=== PATIENT | female | born 1990 | race African-American/Black ===

== ENCOUNTER 2017-08-25 10:47 | Emergency (ER) | payer OTHER ==
[2017-08-25 10:59] VITALS: BP 103/58; PULSE 53; TEMP 98.7; BMI 26.9
--- NOTE | 2017-08-25 11:03 | PDOC ---
History of Present Illness - General Chief Complaint: Redness To Affected Area Stated Complaint: RT FOREARM REDNESS Time Seen by Provider: 08/25/17 11:03 - History of Present Illness Initial Comments: 08/25/17 14:55 Chief complaint: Swelling and pain right forearm History of present illness: Patient complains of swelling and pain in the right forearm since yesterday at the site of insect bites. Had some numbness and tingling in her fingers during the night, but this has resolved. No other trauma Review of systems: No fever/chills, headache, URI symptoms, sore throat, cough, chest pain, shortness of breath, abdominal pain, nausea, vomiting, diarrhea. Menses regular. On control pills. Past medical history: Denies diabetes. Mild asthma controlled on medication, no recent flareups. Social/family history reviewed and noncontributory Physical exam: Alert oriented well-developed well-nourished no acute distress cheerful and cooperative Afebrile, vital signs normal Right upper extremity: Midforearm, dorsal ulnar aspect, insect bite with surrounding erythema and induration approximately 8 cm in diameter. No fluctuance. No deep pain or tenderness that would indicate fasciitis Impression: Insect bite, may be all ALLERGIC reaction, but also may be early cellulitis Plan: Rest and immobilization, antihistamine and antibiotic, CBC and blood cultures which are pending. Follow-up primary physician 24 hours or return to ER if pain or swelling worsens. Fully ambulatory and in no distress upon discharge to follow-up as directed Past History - Past Medical History Allergies/Adverse Reactions: Allergies Allergy/AdvReac Type Severity Reaction Status Date / Time amoxicillin [Amoxicillin] Allergy Mild Rash Verified 11/19/15 22:17 Home Medications: Ambulatory Orders Levonorgestrel-Ethin Estradiol [Chateal-28 Tablet] 1 each PO DAILY 02/15/16 Omeprazole 40 mg PO DAILY capsule 09/01/16 Cetirizine HCl [Zyrtec -] 10 mg PO DAILY 08/25/17 Clindamycin HCl 150 mg PO QID #20 capsule 08/25/17 Montelukast Sodium [Singulair] 10 mg PO DAILY 08/25/17 Anemia: No Asthma: Yes COPD: No GI Disorders: Yes (GERD) Psychiatric Problems: Yes (ANXIETY) - Surgical History Abdominal Surgery: No - Reproductive History Therapeutic (s) & number: Yes (one, 10/21/11) - Immunization History Td Vaccination: Yes Immunization Up to Date: Yes - Suicide/Smoking/Psychosocial Hx Smoking Status: No Smoking History: Never smoked Have you smoked in the past 12 months: Yes Number of Cigarettes Smoked Daily: 1 Information on smoking cessation initiated: Yes 'Breaking Loose' booklet given: 08/25/17 Hx Alcohol Use: No Drug/Substance Use Hx: No Substance Use Type: None Hx Substance Use Treatment: No *Physical Exam - Vital Signs Last Vital Signs Temp Pulse Resp BP Pulse Ox 98.7 F 53 L 20 103/58 97 08/25/17 10:47 08/25/17 10:47 08/25/17 10:47 08/25/17 10:47 08/25/17 10:47 ED Treatment Course - LABORATORY CBC & Chemistry Diagram: 08/25/17 11:03 08/25/17 12:10 *DC/Admit/Observation/Transfer Diagnosis at time of Disposition: Cellulitis Qualifiers: Site of cellulitis: extremity Site of cellulitis of extremity: upper extremity Laterality: right Qualified Code(s): L03.113 - Cellulitis of right upper limb - Discharge Dispostion Disposition: HOME Condition at time of disposition: Stable Decision to Admit order: No - Prescriptions Prescriptions: Clindamycin HCl 150 mg PO QID #20 capsule - Referrals - Patient Instructions Printed Discharge Instructions: DI for Cellulitis -- Adult Additional Instructions: Rest and elevate the arm. Warm compresses. Antibiotics as directed. Return to ER if there are fevers/chills, increased pain, swelling, redness. Otherwise see primary physician for recheck in 48 hours Continue your antihistamine Wear sling to keep the arm immobile. - Post Discharge Activity Forms/Work/School Notes: Back to Work
[2017-08-25 12:14] LABS: URINE APPEARANCE Clear; URINE BILIRUBIN Negative (NEGATIVE); URINE GLUCOSE (UA) Negative (NEGATIVE); URINE KETONE Negative (NEGATIVE); URINE LEUK ESTERASE Negative (NEGATIVE); URINE NITRITE Negative (NEGATIVE); URINE PROTEIN Negative (NEGATIVE); URINE UROBILINOGEN 0.2 (0.2-1.0)
[2017-08-25 12:16] LABS: URINE COLOR AMBER
[2017-08-25 12:22] LABS: HCG,QUALITATIVE URINE Negative
[2017-08-25 12:35] LABS: WHITE BLOOD COUNT 8.6 K/mm3 (4.0-10.8)
[2017-08-25 12:36] LABS: EPI CELLS MODERATE /HPF; URINE RBC 0-2 /hpf (0-3)
[2017-08-25 12:37] LABS: URINE BACTERIA MODERATE /hpf (NEGATIVE)
[2017-08-25] MEDS ORDERED: CLINDAMYCIN IVPB 300 MG in DEXTROSE 5%-WATER - 48 ML IVPB ONE (12:39)
[2017-08-25 12:40] LABS: BASO % 0.4 % (0-2.0); EOS % 0.7 % (0-4.5); HEMATOCRIT 40.8 % (32.4-45.2); HEMOGLOBIN 13.3 GM/dl (10.7-15.3); LYMPH % 25.4 % (8-40); MCH 26.4 pg (25.7-33.7); MCHC 32.6 g/dl (32.0-36.0); MEAN CELL VOLUME 80.8 fl (80-96); MEAN PLT VOLUME 8.4 fl (7.5-11.1); MONO % 6.8 % (3.8-10.2); NEUT % 66.7 % (42.8-82.8); PLATELET COUNT 327 K/MM3 (134-434); RBC 5.06 M/mm3 (3.60-5.2)
[2017-08-25 12:43] LABS: ALK PHOS 42 U/L (32-92); ANION GAP 8 (8-16); CALCIUM 9.5 mg/dl (8.4-10.2); CHLORIDE 106 mmol/L (98-107); CO2 23 mmol/L (22-28); CREATININE 0.9 mg/dl (0.6-1.3); GLUCOSE,RANDOM 89 mg/dl (74-106); SGOT/AST 26 U/L (10-42); SGPT/ALT 26 U/L (10-40); SODIUM 137 mmol/L (136-145); TOT PROT 7.5 g/dl (6.4-8.3)
[2017-08-25 12:45] LABS: BILIRUBIN,TOTAL < 0.5 mg/dl (0.2-1.0); BLOOD UREA NITROGEN < 6 mg/dl (7-18)
[2017-08-25] MEDS ORDERED: CLINDAMYCIN PHOSPHATE 300 MG/2 ML VIAL ONE (13:12)
== END 2017-08-25 14:18 | disposition home or self-care (01) ==
LOC: FER 10:47
PROC: 3E03329 Introduction of Other Anti-infective into Peripheral Vein, Percutaneous Approach (ICD-10-PCS; principal; 2017-08-25)
PROC: 3E033GC Introduction of Other Therapeutic Substance into Peripheral Vein, Percutaneous Approach (ICD-10-PCS; 2017-08-25)
DX: L03.113 Cellulitis of right upper limb (principal); W57.XXXA Bitten or stung by nonvenomous insect and other nonvenomous arthropods, initial encounter; Y93.89 Activity, other specified; Y92.9 Unspecified place or not applicable
CPT/HCPCS: 36415; 80053; 81003; 81015; 84703; 85025; 87040; 99282-25

== ENCOUNTER 2018-06-30 11:12 | Emergency (ER) | payer OTHER ==
[2018-06-30 11:28] VITALS: BP 102/56; PULSE 52; TEMP 98.6; BMI 26.6
[2018-06-30] MEDS ORDERED: IBUPROFEN 400 MG TABLET (FP) PO ONE ×2 (11:32→11:43)
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
== END 2018-06-30 12:29 | disposition home or self-care (01) ==
LOC: FER 11:12
DX: S90.121A Contusion of right lesser toe(s) without damage to nail, initial encounter (principal); M25.571 Pain in right ankle and joints of right foot; X50.1XXA Overexertion from prolonged static or awkward postures, initial encounter; Y92.89 Other specified places as the place of occurrence of the external cause; Y99.8 Other external cause status; Y93.82 Activity, spectator at an event
CPT/HCPCS: 73610-TC-RT-FY; 73630-TC-RT-FY; 81025; 99281-25

== ENCOUNTER 2019-09-21 13:50 | Emergency (ER) | payer OTHER ==
[2019-09-21 14:18] VITALS: BP 113/60; PULSE 48; TEMP 98; BMI 26.6
[2019-09-21] MEDS ORDERED: ALBUTEROL SO4 HFA INHALER IH ONE ×2 (14:35→15:11)
[2019-09-21 14:36] LABS: HCG,QUALITATIVE URINE Positive
[2019-09-21] MEDS ORDERED: ACETAMINOPHEN 325 MG TABLET (FP) PO ONE (15:36)
[2019-09-21] MEDS ORDERED: ACETAMINOPHEN 325 MG TABLET (FP) ONE (15:56)
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
[2019-09-21 16:37] LABS: EPITHELIAL CELLS MODERATE /hpf
== END 2019-09-21 16:03 | disposition home or self-care (01) ==
LOC: FER 13:50
PROC: 3E0F7GC Introduction of Other Therapeutic Substance into Respiratory Tract, Via Natural or Artificial Opening (ICD-10-PCS; principal; 2019-09-21)
DX: O26.891 Other specified pregnancy related conditions, first trimester (principal); R05 Cough; Z3A.01 Less than 8 weeks gestation of pregnancy
CPT/HCPCS: 81003; 81015; 84703; 99283-25; U0003

== ENCOUNTER 2021-06-02 20:19 | Emergency (ER) | payer OTHER ==
[2021-06-02 20:31] VITALS: BP 113/57; PULSE 63; TEMP 98.4; BMI 26.6
== END 2021-06-02 20:41 | disposition home or self-care (01) ==
LOC: FER 20:19
DX: M25.561 Pain in right knee (principal)
CPT/HCPCS: 99282-25

== ENCOUNTER 2022-09-07 16:47 | Emergency (ER) | payer OTHER ==
[2022-09-07 16:59] VITALS: BP 104/58; PULSE 59; RESP 15; TEMP 98.7; BMI 26.6
[2022-09-07] MEDS ORDERED: LIDOCAINE 5% TOPICAL PATCH TP ONE (17:12)
[2022-09-07] MEDS ORDERED: IBUPROFEN 600 MG TABLET (FP) PO ONE ×2 (17:12→17:24)
[2022-09-07] MEDS ORDERED: LIDOCAINE 5% TOPICAL PATCH ONE (17:25)
[2022-09-07] MEDS ORDERED: LIDOCAINE PATCH REMOVAL MC SCH (22:00)
== END 2022-09-07 18:57 | disposition home or self-care (01) ==
LOC: FER 16:47
DX: M54.2 Cervicalgia (principal); S13.4XXA Sprain of ligaments of cervical spine, initial encounter; R20.2 Paresthesia of skin; W20.8XXA Other cause of strike by thrown, projected or falling object, initial encounter; Y93.72 Activity, wrestling
CPT/HCPCS: 72050-TC-FY; 99283-25

== ENCOUNTER 2023-03-16 22:55 | Emergency (ER) | payer OTHER ==
[2023-03-16 23:01] VITALS: BP 114/55; PULSE 76; RESP 16; TEMP 99.7; BMI 25.8
== END 2023-03-17 00:32 | disposition home or self-care (01) ==
LOC: FER 22:55
DX: R50.9 Fever, unspecified (principal); R05.9 Cough, unspecified; M79.10 Myalgia, unspecified site; B34.9 Viral infection, unspecified; Z20.822 Contact with and (suspected) exposure to COVID-19
CPT/HCPCS: 0241U-QW; 99283-25

== ENCOUNTER 2023-10-10 14:50 | Emergency (ER) | payer OTHER ==
[2023-10-10 15:15] VITALS: BP 113/62; PULSE 56; RESP 18; TEMP 98.2; BMI 26.6
[2023-10-10] MEDS: AZITHROMYCIN 500 MG TABLET PO ONE (15:16)
[2023-10-10] MEDS ORDERED: predniSONE 20 MG TABLET (UD) ONE (15:17)
[2023-10-10] MEDS: predniSONE 20 MG TABLET (UD) PO ONE (15:26)
== END 2023-10-10 15:28 | disposition home or self-care (01) ==
LOC: FER 14:50
DX: R05.9 Cough, unspecified (principal); J45.20 Mild intermittent asthma, uncomplicated; R09.81 Nasal congestion
CPT/HCPCS: 99283-25

== ENCOUNTER 2023-10-13 11:41 | Emergency (ER) | payer OTHER ==
[2023-10-13 12:26] VITALS: BP 110/68; PULSE 54; RESP 18; TEMP 97.9; BMI 25.2
[2023-10-13] MEDS ORDERED: ALBUTEROL SO4 2.5/IPRATROPIUM 0.5 INH SOL 3 ML VIAL.NEB. NEB ONE (13:23)
[2023-10-13] MEDS ORDERED: predniSONE 20 MG TABLET (UD) ONE (13:23)
[2023-10-13] MEDS: ALBUTEROL SO4 2.5/IPRATROPIUM 0.5 INH SOL 3 ML VIAL.NEB. NEB SCH (13:44)
[2023-10-13] MEDS: predniSONE 20 MG TABLET (UD) PO ONE (13:44)
== END 2023-10-13 14:51 | disposition home or self-care (01) ==
LOC: FER 11:41
PROC: 3E0F7GC Introduction of Other Therapeutic Substance into Respiratory Tract, Via Natural or Artificial Opening (ICD-10-PCS; principal; 2023-10-13)
DX: R06.02 Shortness of breath (principal); R05.9 Cough, unspecified; J45.901 Unspecified asthma with (acute) exacerbation; R11.0 Nausea; R19.7 Diarrhea, unspecified; R07.89 Other chest pain; F17.210 Nicotine dependence, cigarettes, uncomplicated; Z20.822 Contact with and (suspected) exposure to COVID-19
CPT/HCPCS: 0241U-QW; 71046-TC-FY; 99284-25

== ENCOUNTER 2024-03-09 00:03 | Emergency (ER) | payer OTHER ==
[2024-03-09 00:09] VITALS: BP 121/77; PULSE 88; RESP 18; TEMP 99.3; BMI 25.2
[2024-03-09] MEDS ORDERED: ALBUTEROL SO4 2.5/IPRATROPIUM 0.5 INH SOL 3 ML VIAL.NEB. NEB ONE (00:18)
[2024-03-09] MEDS: ALBUTEROL SO4 2.5/IPRATROPIUM 0.5 INH SOL 3 ML VIAL.NEB. NEB STA (00:20)
== END 2024-03-09 00:45 | disposition home or self-care (01) ==
LOC: FER 00:03
PROC: 3E0F7GC Introduction of Other Therapeutic Substance into Respiratory Tract, Via Natural or Artificial Opening (ICD-10-PCS; principal; 2024-03-09)
DX: R50.9 Fever, unspecified (principal); R05.9 Cough, unspecified; J39.8 Other specified diseases of upper respiratory tract; B97.89 Other viral agents as the cause of diseases classified elsewhere
CPT/HCPCS: 99283-25